=== PATIENT | male | born 1980 | race Caucasian/White ===

== ENCOUNTER 2020-04-17 09:16 | Emergency (ER) | payer OTHER, SELFPAY ==
--- NOTE | ~2020-04-17 | XR_ITS ---
EXAMINATION: XR foot LT min 3V EXAM DATE: 04/17/2020 09:37 INDICATION: Dropped an object on 1st digit on lt foot, bruising. Initial encounter. TECHNIQUE: Left foot dorsoplantar, lateral and oblique projections obtained and reviewed. There is n o prior study for comparison. FINDINGS: Acute closed posttraumatic nondisplaced fracture of the left 1st tuft and shaft. This appe ars to be extra-articular. There is overlying soft tissue swelling. No other acute findings. IMPRESSION: Acute left 1st tuft/shaft fracture. Reviewed, dictated and finalized at location B. PROCESSOR
[2020-04-17 09:28] VITALS: BP 138/77; PULSE 85; RESP 16; TEMP 36.7; O2SAT 100
--- NOTE | 2020-04-17 09:28 | ED.GENADULT ---
HPI - General Adult General Chief complaint: Extremity Injury, Lower Stated complaint: Left foot injury Time Seen by Provider: 04/17/20 09:44 Source: patient Mode of arrival: ambulatory Limitations: no limitations History of Present Illness HPI narrative: 39-year-old male patient presents to the [facility] with complaints of left great toe pain. Patient states that yesterday he dropped a retaining wall block on it. Patient states he had a lot of pressure under the toenail and so took an X-Act[employer] knife and made a hole in the nail which has been draining out some blood. Patient states that did help relieve the pressure but he is concerned that he might of fractured his toe and wanted to come in and get it out. Related Data Home Medications Medication Instructions Recorded Confirmed lisdexamfetamine [Vyvanse] 50 mg PO DAILY 04/17/20 04/17/20 Allergies Allergy/AdvReac Type Severity Reaction Status Date / Time No Known Allergies Allergy Verified 04/17/20 09:34 Review of Systems Review of Systems: Narrative: CONSTITUTIONAL: Denies fever, chills, or sweats. EYES: Denies visual changes, redness, or discharge. ENT: Denies rhinorrhea, congestion, sore throat, or otalgia. CARDIOVASCULAR: Denies chest pain, palpitations, or edema. RESPIRATORY: Denies cough or dyspnea. GASTROINTESTINAL: Denies abdominal pain, nausea, vomiting, or diarrhea. GENITOURINARY: Denies dysuria or hematuria. SKIN: Denies rash or itching. MUSCULOSKELETAL: Denies back pain, joint pain, or myalgia. Positive left great toe pain NEUROLOGIC: Denies headache, numbness, or weakness. PSYCHIATRIC: Denies anxiety or depression. FORMERLY [facility], 1928–1983 Past Medical History Medical History (Updated 04/17/20 @ 09:54 by AMANDA Curtis) Attention deficit hyperactivity disorder, predominantly inattentive type Surgical History Surgical History (Updated 04/17/20 @ 09:29 by AMANDA Curtis) History of orthopedic surgery Left wrist Family History Family History Grandparent Malignant neoplasm of prostate Mother Family history of diabetes mellitus in first degree relative Social History Social History Smoking status: Smoker, status unknown Alcohol intake: never Gender identity (if verbalized by the patient): Male Comments At the time of my signature I agree with nursing past medical history, surgical, social, and family history. There is no relevant family history pertinent to the presenting complaint. Exam Narrative: Exam Narrative: GENERAL: Well-appearing, well-nourished, and in no acute distress. HEAD: Normocephalic, atraumatic. EYES: PERRLA and EOMI. ENT: Nares clear, no rhinorrhea or epistaxis. Mucous membranes moist. NECK: Supple. No lymphadenopathy CHEST: Clear to auscultation. No respiratory distress. HEART: Regular rate and rhythm. No murmur heard. Normal peripheral pulses. ABDOMEN: Soft, nontender, nondistended, normal active bowel sounds. EXTREMITIES: Patient able to bear weight and ambulate has increased pain to the left great toe. Patient has swelling and redness noted to the left great toe along with bruising right above the cuticle area. There is bruising also noted to the medial side of the great toe. There does appear to be some blood under the toenail which patient does have a small hole that continues to drain out blood. The L foot is without obvious asymmetry or deformity when compared to the R foot. No bony step-off, tender to palpation over the left great toes, denies midfoot or hindfoot or sole. Normal plantar/dorsiflexion, inversion/eversion. Distal motor and neurovascular status are intact SKIN: Warm, dry, no rash. NEURO: No focal deficits. Alert and oriented x3. Course Reevaluation(s) Reevaluation #1: Reevaluated patient after his x-ray resulted. Discussed with him that it does show that he has a tuft fracture to the great to
== END 2020-04-17 09:55 | disposition home or self-care (01) ==
PROVIDERS: Emergency Provider Nurse Practitioner Family; PCP Family Medicine
DX: S90.212A Contusion of left great toe with damage to nail, initial encounter (principal); W20.8XXA Other cause of strike by thrown, projected or falling object, initial encounter; S92.425A Nondisplaced fracture of distal phalanx of left great toe, initial encounter for closed fracture; F90.9 Attention-deficit hyperactivity disorder, unspecified type
CPT/HCPCS: 73630; 99213; G0463